=== PATIENT | male | born 1970 | race Native Hawaiian/Other Pacific Islander ===

== ENCOUNTER 2017-07-30 18:43 | Outpatient (CLI) | payer BC ==
[2017-07-30 19:31] LABS: PLATELET COUNT 337 K/uL (142-355)
[2017-07-30 19:59] LABS: POTASSIUM 3.8 mmol/L (3.6-5.2); SODIUM 136 mmol/L (136-145)
== END 2017-07-31 05:22 | disposition home or self-care (01) ==
LOC: LABW 18:43
PROVIDERS: Emergency Medicine
DX: G89.29 Other chronic pain (principal); I10 Essential (primary) hypertension; E29.1 Testicular hypofunction
CPT/HCPCS: 36415; 80053; 80307; 81000; 83735; 85027